=== PATIENT | female | born 1995 | race Caucasian/White ===

== ENCOUNTER 2020-05-13 21:49 | Emergency (ER) | payer OTHER ==
[~2020-05-13] VITALS: Ht 149.9 cm; Wt 104.3 kg
[2020-05-13 22:23] VITALS: BP 121/72
--- NOTE | 2020-05-13 22:38 | NUR ---
PT TAKEN TO BED 12
--- NOTE | 2020-05-13 22:42 | NUR ---
25 YO F BIB SELF FOR C/O RT SIDE FLANK PAIN X 3 DAYS. PT DENIES FEVER CHILLS @ THIS TIME. PT STATES SHE IS INCONTINENT. PT C/O 10/10 PAIN. DENIES ANY DYSURIA OR BLOOD IN URINE. NO OTHER ACUTE DISTRESS NOTED. HILDA LOCKED IN LOWEST POSITION. WILL UPDATE ERMD WILL CONTINUE TO OBSERVE. ALLERGIES: EGGS. PMH: SCHIZO, BIPOLAR, DEPRESSION, ANXIETY,ASTHMA, PTSD. HYPOTHYROID. MED: DEPAKOTE ABILIFY, PROZAC, VALIUM, HYDROXIZINE
[2020-05-13] MEDS ORDERED: oxyCODONE/APAP 5/325 MG 1 TAB TAB PO ONE (23:35)
[2020-05-13] MEDS ORDERED: KETOROLAC 30 MG/ML VIAL IM ONE (23:35)
[2020-05-13 23:49] LABS: APPEARANCE,URINE CLEAR (CLEAR); BILIRUBIN,URINE NEGATIVE (NEGATIVE); BLOOD, URINE 2+ (NEGATIVE); COLOR,URINE YELLOW (YELLOW); LEUKOCYTE ESTERASE ,URINE 1+ (NEGATIVE); NITRITE, URINE NEGATIVE (NEGATIVE); UGLUCOSE NEGATIVE (NEGATIVE)
[2020-05-13 23:52] LABS: RBC,URINE 20-50 /HPF (0-5)
[2020-05-14] MEDS ORDERED: MORPHINE SULFATE 4 MG/ML SYR IM ONE (00:20)
--- NOTE | 2020-05-14 00:30 | NUR ---
NEW IV STARTED; L AC 18 G, LABS DRAWN, SENT TO LAB WITH PHLEB. NO ACUTE DISTRESS NOTED. WILL CONTINUE TO OBSERVE
--- NOTE | 2020-05-14 00:38 | NUR ---
PT TAKEN TO CT
[2020-05-14 00:49] LABS: ANION GAP 10.9 (8-16); CARBON DIOXIDE 29.1 mmol/L (21-32)
[2020-05-14] MEDS ORDERED: MORPHINE SULFATE 4 MG/ML SYR IVP ONE (00:50)
[2020-05-14 01:33] VITALS: BP 118/65
--- NOTE | 2020-05-14 01:33 | NUR ---
Patient discharged with v/s stable. Written and verbal after care instructions given and explained. Patient alert, oriented and verbalized understanding of instructions. Ambulatory with steady gait. All questions addressed prior to discharge. ID band removed. Patient advised to follow up with PMD. Rx of NAPROXEN,MACROBID, PERCOCET given. Patient educated on indication of medication including possible reaction and side effects. Opportunity to ask questions provided and answered.
== END 2020-05-14 01:33 | disposition home or self-care (01) ==
LOC: MED 21:49
DX: R10.9 Unspecified abdominal pain (principal)
CPT/HCPCS: 36415; 74176; 80048; 81001; 81025; 87086; 96372; 96374; 99285; J1885; J2270; 81002

== ENCOUNTER 2020-05-16 15:18 | Emergency (ER) | payer OTHER ==
[~2020-05-16] VITALS: Ht 149.9 cm; Wt 104.3 kg
--- NOTE | 2020-05-16 15:35 | NUR ---
PT AMBULATED TO BED 6
[2020-05-16 15:36] VITALS: BP 122/77
--- NOTE | 2020-05-16 15:41 | NUR ---
ADAM REED AT PT BEDSIDE FOR FURTHER EVALUATION
--- NOTE | 2020-05-16 15:43 | NUR ---
25 y/o female c/o right flank pain 01/14 describes as burning radiating to suprapubic area X2days. Pt states she was recently seen here in the ER X2days and dx with UTI prescribed abx with no relief. Pt states the symptoms are worsening with increasing dysuria and now having incontinent episodes. Denies fever/chills, denies discharge, denies N/V/D. Denies PMH NKA
[2020-05-16] MEDS ORDERED: ONDANSETRON 4 MG/2 ML VIAL IVP ONE (15:50)
[2020-05-16] MEDS ORDERED: KETOROLAC 30 MG/ML VIAL IVP ONE (15:50)
--- NOTE | 2020-05-16 15:57 | NUR ---
US TECH AT PT BEDSIDE
--- NOTE | 2020-05-16 16:07 | NUR ---
refrigerating technician at pt bedside.
[2020-05-16 16:31] LABS: APPEARANCE,URINE HAZY (CLEAR); BASOPHILS % (AUTO) 0.5 % (0.0-2.0); BILIRUBIN,URINE NEGATIVE (NEGATIVE); BLOOD, URINE 2+ (NEGATIVE); COLOR,URINE YELLOW (YELLOW); EOSINOPHILS # (AUTO) 0.2 K/uL (0-0.4); EOSINOPHILS % (AUTO) 2.4 % (0.0-4.0); HEMATOCRIT 36.8 % (36-48); HEMOGLOBIN 12.2 g/dL (12.0-16.0); LEUKOCYTE ESTERASE ,URINE NEGATIVE (NEGATIVE); LYMPHOCYTES # (AUTO) 2.2 K/uL (2.5-16.5); LYMPHOCYTES % (AUTO) 26.2 % (20.5-51.1); MEAN CORPUSCULAR HEMOGLOBIN 28 pg (27-31); MEAN CORPUSCULAR HGB CONC 33 g/dL (33-37); MEAN CORPUSCULAR VOLUME 83.7 fL (80-94); MONOCYTES # (AUTO) 0.4 K/uL (0.8-1.0); NEUTROPHILS # (AUTO) 5.6 K/uL (1.8-7.7); NEUTROPHILS % (AUTO) 65.9 % (42.2-75.2); NITRITE, URINE NEGATIVE (NEGATIVE); PLATELET COUNT (AUTO) 325 K/uL (140-450); RED BLOOD CELL COUNT(AUTO) 4.39 MIL/uL (4.20-5.40); RED CELL DISTRIBUTION WIDTH 14.5 % (11.6-13.7); UGLUCOSE NEGATIVE (NEGATIVE); WHITE BLOOD COUNT (AUTO) 8.4 K/uL (4.8-10.8)
[2020-05-16 16:39] LABS: RBC,URINE 11-20 (MOD) /HPF (0-5)
[2020-05-16 16:43] LABS: ALBUMIN 3.8 g/dL (3.4-5.0); ANION GAP 14.6 (8-16); CARBON DIOXIDE 25.9 mmol/L (21-32); CREATININE 0.9 mg/dL (0.6-1.3); POTASSIUM 4.5 mmol/L (3.5-5.1); TOTAL BILIRUBIN 0.2 mg/dL (0.0-1.0)
[2020-05-16] MEDS ORDERED: HYDROcodone/APAP 7.5/325 MG 1 TAB PO ONE (17:15)
--- NOTE | 2020-05-16 17:15 | NUR ---
PT IS YELLING OUT IN PAIN, ADAM REED AT BEDSIDE. PT STATES PAIN IS 8/10 WITH MIGRAINE
[2020-05-16 18:08] VITALS: BP 99/50
--- NOTE | 2020-05-16 18:09 | NUR ---
Patient discharged with v/s stable. Written and verbal after care instructions given and explained. Patient alert, oriented and verbalized understanding of instructions. Ambulatory with steady gait. All questions addressed prior to discharge. ID band removed. Patient advised to follow up with PMD. Rx of depakote 500 mg tab BID PO, phenazopyridine hydrochloride 100 tab TID PRN, ibuprofen 600 mg tab PO TID given. Patient educated on indication of medication including possible reaction and side effects. Opportunity to ask questions provided and answered.
== END 2020-05-16 18:09 | disposition home or self-care (01) ==
LOC: MED 15:18
DX: M54.9 Dorsalgia, unspecified (principal); R10.9 Unspecified abdominal pain; G40.909 Epilepsy, unspecified, not intractable, without status epilepticus
CPT/HCPCS: 36415; 76705; 80053; 81001; 81025; 83690; 85025; 87086; 96374; 96375; 99284; J1885; J2405